=== PATIENT | male | born 1995 | race Caucasian/White ===

== ENCOUNTER 2018-06-09 08:15 | Emergency (ER) | payer BC, OTHER ==
[~2018-06-09] VITALS: Ht 175.3 cm; Wt 74.8 kg
--- NOTE | 2018-06-09 08:46 | ED GI ---
General Chief Complaint: Abdominal/GI Problems Stated Complaint: CONSTIPATED Source of Information: Patient History of Present Illness Date Seen by Provider: Jun 09, 2018 Time Seen by Provider: 08:30 Initial Comments 22-year-old male who presents with constipation problems for 2-3 weeks. Patient reports he tried some laxatives and stool softeners. He is tried he sporadically and nothing on a consistent basis. He noticed that he had what he calls a "red blob" near his anus when he looked better in a mirror. He reports that he continues to push but does not have any stool coming out. He denies any abdominal pain, nausea, vomiting. He does not have any fevers or urinary symptoms. Severity/Quality: Mild Allergies and Home Medications Allergies Coded Allergies: No Known Drug Allergies (Unverified , 06/09/18) Patient Home Medication List Home Medication List Reviewed: Yes Review of Systems Review of Systems Constitutional: No no symptoms reported, No see HPI, No chills, No diaphoresis , No dizziness, No fever, No malaise, No weakness, No weight gain, No weight loss, No other EENTM: No No Symptoms Reported, No See HPI, No Blurred Vision, No Double Vision , No Eye Pain, No Eye Tearing, No Ear Drainage, No Ear Pain, No Mouth Pain, No Mouth Swelling, No Nose Congestion, No Nose Pain, No Throat Pain, No Throat Swelling, No Other Respiratory: Denies No Symptoms Reported, Denies See HPI, Denies Cough, Denies Orthopnea, Denies Shortness of Air, Denies SOA With Exertion, Denies SOA at Rest , Denies Stridor, Denies Wheezing, Denies Other Cardiovascular: Denies No Symptoms Reported, Denies See HPI, Denies Chest Pain , Denies Edema, Denies Irregular Heart Rate, Denies Lightheadedness, Denies Palpitations, Denies Syncope, Denies Other Gastrointestinal: Denies Abdominal Pain; Constipated; Denies Nausea, Denies Rectal Bleeding, Denies Vomiting Genitourinary: No Symptoms Reported, See HPI Musculoskeletal: no symptoms reported Skin: no symptoms reported Past [place] Hx Past Med/Social Hx: Reviewed Nursing Past Med/Soc Hx Patient Social History Recent Foreign Travel: No Contact w/Someone Who Travel: No Physical Exam Vital Signs Vital Signs - First Documented 06/09/18 08:20 Temp 97.4 Pulse 89 Resp 16 B/P (MAP) 131/80 (97) Pulse Ox 99 O2 Delivery Room Air Capillary Refill : Height/Weight/BMI Height: '" Weight: lbs. oz. kg; BMI Method: General Appearance: WD/WN, no apparent distress HEENT: PERRL/EOMI Neck: non-tender, supple Respiratory: lungs clear, normal breath sounds, no respiratory distress Cardiovascular: normal peripheral pulses, regular rate, rhythm Gastrointestinal: non tender, soft Rectal: normal exam Extremities: normal range of motion, non-tender Back: normal inspection Neurologic/Psychiatric: alert, normal mood/affect, oriented x 3 Skin: normal color, warm/dry Progress/Results/Core Measures Results/Orders My Orders Orders - JAMAL BAINS DO Abdomen Flat & Upright/Decub (06/09/18 08:39) Vital Signs/I&O 06/09/18 06/09/18 08:20 09:33 Temp 97.4 97.4 Pulse 89 69 Resp 16 20 B/P (MAP) 131/80 (97) 132/48 (76) Pulse Ox 99 98 O2 Delivery Room Air Progress Progress Note : Progress Note Patient with very mild constipation on x-ray. I discussed with him the use of MiraLAX 2-3 times a day as needed until soft daily stool. Patient with no other significant findings. He will be discharged home in stable condition. Diagnostic Imaging Diagonstic Imaging: Xray Plain Films/CT/US/NM/MRI: abdomen Comments mild constipation, no acute finding Signed Date of Exam: 06/09/18 ABDOMEN FLAT & UPRIGHT/DECUB INDICATION: Abdominal pain and constipation. COMPARISON: None available. FINDINGS: Nonobstructive bowel gas pattern. No free intraperitoneal air. There is a small volume of colonic stool present. No free intraperitoneal air. No abnormal soft tissue mineralizations. IMPRESSION: 1. Nonobstructive bowel gas pattern. 2. Small volume of colonic stool. Reviewed: Reviewed by Me Departure Impression Primary Impression: Constipation Disposition: 01 HOME, SELF-CARE Condition: Stable Departure-Patient Inst. Decision time for Depature: 09:20 Patient Instructions: Constipation, Adult (DC) Add. Discharge Instructions: MiraLAX 2-3 times daily until soft daily stool then as needed for daily soft stool. Drink plenty of liquids and eat plenty of fiber. All discharge instructions reviewed with patient and/or family. Voiced understanding. Work/School Note: Work Release Form Date Seen in the Emergency Department: Jun 09, 2018 Return to Work: Jun 09, 2018 Restrictions: No Restrictions JAMAL BAINS DO Jun 09, 2018 08:46
--- NOTE | 2018-06-09 09:09 | Diagnostic Imaging Report ---
INDICATION: Abdominal pain and constipation. COMPARISON: None available. FINDINGS: Nonobstructive bowel gas pattern. No free intraperitoneal air. There is a small volume of colonic stool present. No free intraperitoneal air. No abnormal soft tissue mineralizations. IMPRESSION: 1. Nonobstructive bowel gas pattern. 2. Small volume of colonic stool. Dictated by: Dictated on workstation # [id number]
[2018-06-09 09:33] VITALS: BP 132/48
== END 2018-06-09 09:33 | disposition home or self-care (01) ==
LOC: EDUNIT# 08:15 → ER FS 08:19
DX: K59.00 Constipation, unspecified (principal)
CPT/HCPCS: 74019